=== PATIENT | female | born 1980 | race Caucasian/White ===

== ENCOUNTER 2018-12-05 17:02 | Inpatient (IN) | payer OTHER ==
[2018-12-05] MEDS ORDERED: NA CHLORIDE 0.9% 1,000 ML ONE (19:57)
[2018-12-05 20:08] LABS: Absolute Lymphocytes (CBC) 2.1 K/uL (0.7-4.9); Basophils % 0.4 % (0-1.3); Hematocrit 32.9 % (36.0-45.0); Lymphocytes % 25.7 % (15.3-44.8); MPV 8.8 fL (7.6-11.3)
[2018-12-05 20:17] LABS: Urine Blood NEGATIVE (NEG); Urine Glucose NEGATIVE (NEG); Urine Protein 1+ (NEG); Urine Specific Gravity >1.030 (1.005-1.030); Urine pH 5.5 (5.0-7.0)
[2018-12-05 20:24] LABS: Potassium 3.2 mmol/L (3.5-5.1)
--- NOTE | 2018-12-05 20:43 | RAD REPORT ---
EXAM DESCRIPTION: CTAbdomen Pelvis W Contrast - 12/05/2018 8:19 pm CLINICAL HISTORY: Abdominal pain. ABD PAIN COMPARISON: No comparisons TECHNIQUE: Biphasic CT imaging of the abdomen and pelvis was performed with 100 ml non-ionic IV cont rast. All CT scans are performed using dose optimization technique as appropriate and may include automated exposure control or mA/KV adjustment according to patient size. FINDINGS: The lung bases are clear. The liver, spleen, pancreas, adrenal glands and kidneys are within normal limits. No bowel obstruction, free air or abscess. Trace free fluid is seen in the pelvis. Dilated thickened tubular structure measuring 12 mm is present in the right lower quadrant (image 115/196 coronal seque nce). This likely is an early inflamed appendix. No evidence of significant lymphadenopathy. No suspicious bony findings. IMPRESSION: Early acute appendicitis is suspected.
--- NOTE | 2018-12-05 20:55 | ER ---
Nurse's Notes [facility] Name: Kimberlee Bocanegra Age: 38 yrs Sex: Female : 1980 Arrival Date: 12/05/2018 Time: 17:04 Bed 30 Private MD: Diagnosis: Acute appendicitis Presentation: 12/05 17:56 Presenting complaint: Patient states: "Last night about 10pm I started having stabbing aj1 pain in my abdomen. I thought it would pass, around 12 it kept getting worse and I couldn't get comfortable. I kept feeling like I needed to go to the bathroom and felt nauseated I had chills. I woke up at 4 am, threw up. Im still having pain." Reports pain to RLQ. Reports chills. Transition of care: patient was not received from another setting of care. Onset of symptoms was December 04, 2018 at 22:00. Risk Assessment: Do you want to hurt yourself or someone else? Patient reports no desire to harm self or others. Initial Sepsis Screen: Does the patient meet any 2 criteria? No. Patient's initial sepsis screen is negative. Does the patient have a suspected source of infection? Yes: Acute abdominal pain. Care prior to arrival: None. 17:56 Method Of Arrival: Ambulatory aj 17:56 Acuity: TRACY 3 aj1 Triage Assessment: 17:58 General: Appears in no apparent distress. uncomfortable, Behavior is calm, cooperative, aj1 appropriate for age. Pain: Complains of pain in right lower quadrant Pain currently is 8 out of 10 on a pain scale. Neuro: Level of Consciousness is awake, alert, obeys commands. Cardiovascular: Patient's skin is warm and dry. Respiratory: Airway is patent Respiratory effort is even, unlabored, Respiratory pattern is regular, symmetrical. GI: Reports lower abdominal pain, nausea, vomiting. Derm: Skin is pink, warm \\T\\ dry. normal. 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 - Social history:: Smoking status: Patient/guardian denies using tobacco. - Ebola Screening: : Patient denies travel to an Ebola-affected area in the 21 days before illness onset. Screenin:30 Abuse screen: Denies threats or abuse. Denies injuries from another. Nutritional wh screening: No deficits noted. Tuberculosis screening: No symptoms or risk factors identified. Fall Risk None identified. Assessment: 19:30 General: Appears in no apparent distress. Behavior is calm, cooperative, appropriate wh for age. Pain: Complains of pain in left lower quadrant Pain does not radiate. Pain currently is 4 out of 10 on a pain scale. Quality of pain is described as aching, Pain began 1 day ago. Neuro: Level of Consciousness is awake, alert, obeys commands. Cardiovascular: Capillary refill < 3 seconds. Respiratory: Airway is patent Respiratory effort is even, unlabored, Respiratory pattern is regular, symmetrical. Respiratory: Breath sounds are clear bilaterally. GI: Abdomen is flat, non-distended, Bowel sounds present X 4 quads. Abd is soft and non tender. : No signs and/or symptoms were reported regarding the genitourinary system. EENT: No signs and/or symptoms were reported regarding the EENT system. Derm: Skin is intact, is healthy with good turgor, Skin is pink, warm \\T\\ dry. normal. Musculoskeletal: Circulation, motion, and sensation intact. 20:30 Reassessment: Patient appears in no apparent distress at this time. No changes from previously documented assessment. Patient and/or family updated on plan of care and expected duration. Pain level reassessed. Patient is alert, oriented x 3, equal unlabored respirations, skin warm/dry/pink. 21:32 Reassessment: Patient appears in no apparent distress at this time. No changes from previously documented assessment. Patient and/or family updated on plan of care and expected duration. Pain level reassessed. Patient is alert, oriented x 3, equal unlabored respirations, skin warm/dry/pink. Dr Salvador Spoke with Pt. going directly to OR. 21:48 Reassessment: Report given to Lixena OR Nurse. Vital Signs: 17:58 BP 122 / 80; Pulse 95; Resp 18; Temp 97.5; Pulse Ox 99% on R/A; Weight 68.04 kg (R); aj1 Height 5 ft. 3 in. (160.02 cm) (R); Pain 8/10; 19:30 BP 108 / 75; Pulse 68; Resp 18; Pulse Ox 99% on R/A; wh 20:30 BP 107 / 73; Pulse 65; Resp 18; Pulse Ox 100% on R/A; wh 21:30 BP 121 / 91; Pulse 68; Resp 18; Pulse Ox 100% on R/A; wh 17:58 Body Mass Index 26.57 (68.04 kg, 160.02 cm) aj1 ED Course: 17:04 Patient arrived in ED. as 17:58 Triage completed. aj1 17:58 Arm band placed on Patient placed in waiting room, Patient notified of wait time. aj1 18:09 Melody Uribe FNP-C is PHCP. kb 18:09 Aidan Rosales MD is Attending Physician. kb 19:04 Elmer Gallo is Primary Nurse. 19:04 Melody Uribe FNP-C is PHCP. kb 19:04 Tommy Mendoza MD is Attending Physician. kb 19:39 Radiology exam delayed due to lab results not completed at this time. (BUN/Creatinine). mw3 20:15 Inserted saline lock: 22 gauge in right antecubital area, using aseptic technique. Blood collected. 20:19 CT completed. Patient tolerated procedure well. Patient moved back from CT. mw3 20:20 CT Abd/Pelvis - IV Contrast Only In Process Unspecified. EDMS 20:30 Patient has correct armband on for positive identification. Placed in gown. Bed in low wh position. Call light in reach. Side rails up X 1. Pulse ox on. NIBP on. 20:54 Joe Salvador MD is Hospitalizing Provider. kb 21:49 No provider procedures requiring assistance completed. Patient admitted, IV remains in place. Administered Medications: 19:53 Drug: NS 0.9% 1000 ml Route: IV; Rate: 1000 ml; Site: right antecubital; 21:45 Follow up: Response: No adverse reaction; IV Status: Completed infusion 21:07 Drug: LevaQUIN 500 mg Volume: 100 ml; Route: IVPB; Infused Over: 60 mins; Site: right antecubital; 21:50 Follow up: Response: No adverse reaction; IV Status: Completed infusion 21:07 Drug: Flagyl 500 mg Volume: 100 ml; Route: IVPB; Rate: 200 ml/hr; Infused Over: 30 wh mins; Site: right antecubital; 21:50 Follow up: Response: No adverse reaction; IV Status: Completed infusion Outcome: 20:54 Decision to Hospitalize by Provider. 21:49 Admitted to OR accompanied by nurse, family with patient, via stretcher, with chart, Other Bedside report given to Lixena OR Nurse 21:49 Condition: good 21:49 Instructed on the need for admit. 21:51 Patient left the ED. Signatures: Dispatcher [employer] EDMelody Dickson, DRAWING IN MACHINE TENDER HELPER-C DRAWING IN MACHINE TENDER HELPER-Ange Montanez RN RN aj1 Susie Angulo Winsy wh Willis, Michelle mw3
--- NOTE | 2018-12-05 20:56 | EDPHYS ---
Physician Documentation [facility] Name: Kimberlee Bocanegra Age: 38 yrs Sex: Female : 1980 Arrival Date: 12/05/2018 Time: 17:04 Bed 30 Private MD: ED Physician Tommy Mendoza HPI: 12/05 20:16 This 38 yrs old Female presents to ER via Ambulatory with complaints of kb Abdominal Pain. 20:16 The patient presents with abdominal pain right lower quadrant. Onset: The kb symptoms/episode began/occurred yesterday. The symptoms do not radiate. Associated signs and symptoms: Pertinent positives: nausea and vomiting, chills. The symptoms are described as constant. Modifying factors: The symptoms are alleviated by nothing, the symptoms are aggravated by movement, pressure, walking. Severity of pain: At its worst the pain was moderate in the emergency department the pain is unchanged. The patient has not experienced similar symptoms in the past. The patient has not recently seen a physician. 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 - Social history:: Smoking status: Patient/guardian denies using tobacco. - Ebola Screening: : Patient denies travel to an Ebola-affected area in the 21 days before illness onset. ROS: 20:12 Neck: Negative for injury, pain, and swelling, Cardiovascular: Negative for chest pain, kb palpitations, and edema, Respiratory: Negative for shortness of breath, cough, wheezing, and pleuritic chest pain, Back: Negative for injury and pain, : Negative for injury, bleeding, discharge, and swelling, MS/Extremity: Negative for injury and deformity, Skin: Negative for injury, rash, and discoloration, Neuro: Negative for headache, weakness, numbness, tingling, and seizure. 20:12 Constitutional: Positive for chills, Negative for body aches, fatigue, fever, malaise, poor PO intake, weight loss. 20:12 Abdomen/GI: Positive for abdominal pain, nausea and vomiting. Exam: 20:15 Constitutional: This is a well developed, well nourished patient who is awake, alert, kb and in no acute distress. Head/Face: Normocephalic, atraumatic. ENT: Nares patent. No nasal discharge, no septal abnormalities noted. Tympanic membranes are normal and external auditory canals are clear. Oropharynx with no redness, swelling, or masses, exudates, or evidence of obstruction, uvula midline. Mucous membranes moist. Neck: Trachea midline, no thyromegaly or masses palpated, and no cervical lymphadenopathy. Supple, full range of motion without nuchal rigidity, or vertebral point tenderness. No Meningismus. Chest/axilla: Normal chest wall appearance and motion. Nontender with no deformity. No lesions are appreciated. Cardiovascular: Regular rate and rhythm with a normal S1 and S2. No gallops, murmurs, or rubs. Normal PMI, no JVD. No pulse deficits. Respiratory: Lungs have equal breath sounds bilaterally, clear to auscultation and percussion. No rales, rhonchi or wheezes noted. No increased work of breathing, no retractions or nasal flaring. Back: No spinal tenderness. No costovertebral tenderness. Full range of motion. Skin: Warm, dry with normal turgor. Normal color with no rashes, no lesions, and no evidence of cellulitis. MS/ Extremity: Pulses equal, no cyanosis. Neurovascular intact. Full, normal range of motion. Neuro: Awake and alert, GCS 15, oriented to person, place, time, and situation. Cranial nerves II-XII grossly intact. Motor strength 5/5 in all extremities. Sensory grossly intact. Cerebellar exam normal. Normal gait. 20:15 Abdomen/GI: Inspection: abdomen appears normal, Bowel sounds: normal, in all quadrants, Palpation: soft, in all quadrants, nontender, in the right upper quadrant, left upper quadrant and left lower quadrant, severe abdominal tenderness, in the right lower quadrant, Indicators: McBurney's point is tender, Psoas sign is positive. Vital Signs: 17:58 BP 122 / 80; Pulse 95; Resp 18; Temp 97.5; Pulse Ox 99% on R/A; Weight 68.04 kg (R); aj1 Height 5 ft. 3 in. (160.02 cm) (R); Pain 8/10; 19:30 BP 108 / 75; Pulse 68; Resp 18; Pulse Ox 99% on R/A; wh 20:30 BP 107 / 73; Pulse 65; Resp 18; Pulse Ox 100% on R/A; wh 21:30 BP 121 / 91; Pulse 68; Resp 18; Pulse Ox 100% on R/A; wh 17:58 Body Mass Index 26.57 (68.04 kg, 160.02 cm) aj1 MDM: 19:04 Patient medically screened. kb 20:12 Data reviewed: vital signs, nurses notes. Data interpreted: Pulse oximetry: on room air kb is 99 %. Interpretation: normal. 20:53 Counseling: I had a detailed discussion with the patient and/or guardian regarding: the kb historical points, exam findings, and any diagnostic results supporting the discharge/admit diagnosis, lab results, radiology results, the need for further work-up and treatment in the hospital. Physician consultation: Joe Salvador MD was contacted at 20:53, regarding admission, to the medical/surgical unit. consult, patient's condition, and will see patient in ED, shortly. 08 19:24 Order name: Basic Metabolic Panel; Complete Time: 20:25 kb 12/05 19:24 Order name: CBC with Diff; Complete Time: 20:17 kb 08 19:24 Order name: CT Abd/Pelvis - IV Contrast Only; Complete Time: 20:46 kb 08 20:07 Order name: Urine Dipstick--Ancillary (enter results); Complete Time: 20:20 kb 08 20:07 Order name: Urine --Ancillary (enter results); Complete Time: 20:20 kb 12/05 18:09 Order name: Urine Dipstick-Ancillary (obtain specimen); Complete Time: 20:44 kb 08 18:09 Order name: Urine Test (obtain specimen); Complete Time: 20:44 kb 12/05 19:24 Order name: IV Saline Lock; Complete Time: 20:44 kb 12/05 19:24 Order name: Labs collected and sent; Complete Time: 20:44 kb Administered Medications: 19:53 Drug: NS 0.9% 1000 ml Route: IV; Rate: 1000 ml; Site: right antecubital; 21:45 Follow up: Response: No adverse reaction; IV Status: Completed infusion 21:07 Drug: LevaQUIN 500 mg Volume: 100 ml; Route: IVPB; Infused Over: 60 mins; Site: right antecubital; 21:50 Follow up: Response: No adverse reaction; IV Status: Completed infusion 21:07 Drug: Flagyl 500 mg Volume: 100 ml; Route: IVPB; Rate: 200 ml/hr; Infused Over: 30 wh mins; Site: right antecubital; 21:50 Follow up: Response: No adverse reaction; IV Status: Completed infusion Disposition: 12/05/18 20:54 Hospitalization ordered by Joe Salvador for Observation. Preliminary diagnosis is Acute appendicitis. - Bed requested for Telemetry/MedSurg (observation). - Status is Observation. - Condition is Stable. - Problem is new. - Symptoms are unchanged. UTI on Admission? No Signatures: Dispatcher [employer] EDMS Melody Uribe, ELVIA-C RHEUMATOLOGY SPECIALIST-Ange Montanez RN RN aj Annalisa Adam RN RN Elmer Gallo Corrections: (The following items were deleted from the chart) 21:06 20:54 Hospitalization Ordered by Joe Salvador MD for Observation. Preliminary diagnosis cg is Acute appendicitis. Bed requested for Telemetry/MedSurg (observation). Status is Observation. Condition is Stable. Problem is new. Symptoms are unchanged. UTI on Admission? No. kb 21:51 21:06 12/05/2018 20:54 Hospitalization Ordered by Joe Salvador MD for Observation. Preliminary diagnosis is Acute appendicitis. Bed requested for Telemetry/MedSurg (observation). Status is Observation. Condition is Stable. Problem is new. Symptoms are unchanged. UTI on Admission? No. cg
[2018-12-05] MEDS ORDERED: Levofloxacin500mg IV 500 MG/100 ML BAG IV ONE (20:57)
[2018-12-05] MEDS ORDERED: METRONIDAZOLE 500mg IVPB 500 MG/100 ML BAG IV ONE (20:58)
[2018-12-05] MEDS ORDERED: NA CHLORIDE 0.9% 1,000 ML IV SCH (21:17)
[2018-12-05] MEDS ORDERED: ACETAMINOPHEN 500 MG TAB PO PRN (21:17)
[2018-12-05] MEDS ORDERED: PIPER/TAZO/NS 3.375gm 3.375 GM/100 ML BAG ONE (21:41)
[2018-12-05] MEDS ORDERED: PROPOFOL 200 MG/20 ML VIAL IV ONE (21:54)
[2018-12-05] MEDS ORDERED: MORPHINE 10 MG/ML VIAL ONE (21:54)
[2018-12-05] MEDS ORDERED: LIDOCAINE 1% MPF 5 ML VIAL ONE (21:54)
[2018-12-05] MEDS ORDERED: GLYCOPYRROLATE 0.2 MG/ML SYR ONE ×2 (21:54)
[2018-12-05] MEDS ORDERED: FENTANYL CITR 100 MCG/2 ML ONE (21:54)
[2018-12-05] MEDS ORDERED: MIDAZOLAM HCL 2 MG/2 ML INJ ONE (21:54)
[2018-12-05] MEDS ORDERED: ONDANSETRON 4 MG/2 ML VIAL ONE (21:55)
[2018-12-05] MEDS ORDERED: ROCURONIUM 50 MG/5 ML VIAL IV ONE (21:55)
[2018-12-05] MEDS ORDERED: KETOROLAC 30 MG/ML INJ ONE (21:55)
[2018-12-05] MEDS ORDERED: NEOSTIGMINE 1 MG/ML -10 ML VIAL ONE (21:56)
[2018-12-05] MEDS ORDERED: BUPIVACA 0.5%/EPI 0.0005%/PF 10 ML VIAL ONE (21:58)
[2018-12-05] MEDS ORDERED: Ringers Lactate 1,000 ML IV ONE (22:52)
--- NOTE | 2018-12-05 22:59 | P.OP ---
Preoperative diagnosis: Acute Appendicitis Postoperative diagnosis: Acute Appendicitis Primary procedure: Laparoscopic Appendectomy Anesthesia: GETA + Local Estimated blood loss: <10cc Specimen: Vermiform Appendix Findings: Non-Perforated Appendicitis Complications: None Transferred to: Recovery Room Condition: Good
[2018-12-05] MEDS ORDERED: NALOXONE 0.4 MG/ML VIAL ONE (23:16)
[2018-12-06 00:01] LABS: Hematocrit 22.1 % (36.0-45.0)
[2018-12-06] MEDS ORDERED: Ringers Lactate 2,000 ML IV ONE (00:02)
[2018-12-06] MEDS ORDERED: Ringers Lactate 1,000 ML IV ONE ×4 (00:19→03:22)
[2018-12-06] MEDS ORDERED: FENTANYL CITR 100 MCG/2 ML ONE (00:23)
[2018-12-06] MEDS ORDERED: ETOMIDATE 20 MG/10 ML VIAL IV ONE (00:24)
[2018-12-06] MEDS ORDERED: SUCCINYLCHOLINE 20 MG/ML (10 ML) IV ONE (00:25)
[2018-12-06] MEDS ORDERED: EPHEDRINE SULF 50 MG/ML VIAL ONE (00:28)
[2018-12-06] MEDS ORDERED: ALBUMIN HUM 5% 250 ML IV ONE (00:58)
[2018-12-06] MEDS ORDERED: NA CHLORIDE 0.9% 1,000 ML ONE (01:12)
--- NOTE | 2018-12-06 01:55 | P.OP ---
Preoperative diagnosis: Post Op Hemorrhage Postoperative diagnosis: Post Op Hemorrhage Primary procedure: Diagnostic Laparoscopy, evacuation of hematoma Anesthesia: GETA Estimated blood loss: 400cc clot Specimen: none Findings: No active bleeding indentified, suspect trocar bleeding Complications: None Fluids & blood products: 2 units PRBC Transferred to: ICU Condition: Fair
[2018-12-06] MEDS ORDERED: NA CHLORIDE 0.9% 0 ML ONE (02:27)
[2018-12-06 04:57] VITALS: BMI 28.1
[2018-12-06] MEDS: Ringers Lactate 1,000 ML IV SCH ×4 (05:22→20:01)
[2018-12-06] MEDS: MORPHINE 4 MG/ML SYR IV PRN ×2 (05:26→09:02)
[2018-12-06 05:30] LABS: Hematocrit 25.7 % (36.0-45.0)
--- NOTE | 2018-12-06 05:54 | HP ---
Date of Admission: 12/05/2018 Brief History Of Present Illness: The patient is a 38-year-old female who presents to the hospital with approximately 1-1/2 days of periumbilical abdominal pain now located to the right lower quadrant. It is made worse with movement, coughing, straining, any activity. It is made better by lying still. She has never had similar episodes before in the past. No sick contacts. No recent tr samuel. No new food exposures. The patient has been getting progressively worse over the course of , associated with fever, chills, and nausea. Past Medical History: Significant for prolactinoma. Past Surgical History: She had tubal ligation. Home Medications: None. Allergies: NO KNOWN DRUG ALLERGIES. Social History: She denies smoking, alcohol, or recreational drug use. 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 Review of Systems: A 10-point review of systems other than HPI, denies. Physical Examination: Vital Signs: At the time of my examination, her vital signs were stable. General: She is awake, alert, and oriented. Psychiatric: She is appropriate and conversive. HEENT: She is normocephalic. Sclerae anicteric. Mucous membranes are moist. Oropharynx clear. Neck: Supple. No JVD. Chest: Expansion and excursion. Cardiovascular: Regular rate and rhythm. Pulmonary: Clear to auscultation bilaterally. Abdomen: Soft with positive right lower quadrant focal peritonitis at McBurney's point. Positive re bound, positive guarding consistent with early appendicitis. Extremities: No clubbing, cyanosis, or edema. Skin: Warm and dry. Laboratory Data: Reveals a white blood count of 8.1, hemoglobin 11.3, hematocrit of 32.8 neutrophils are normal at 64%, platelet count is 223. Her sodium 144, potassium 3.2, chloride 110, carbon dioxi de 26, BUN 9, creatinine 0.7, glucose 91, calcium 8.4. UA was negative. test is negative. She had a CT scan performed of the abdomen and pelvis, officially read by Dr. Laird as acute appendi citis early suspected, specifically there was dilated thickened tubular structure measuring 12 mm is present in the right lower quadrant, likely early inflamed appendix. No significant lymphadenopathy. No other findings. Assessment And Plan: This is a 38-year-old female who presents with signs and symptoms of early appe ndicitis. 1.IV fluid hydration. 2.Antibiotic coverage. 3.I have explained the risks, benefits, and alternatives of possible open appendectomy including but not limited to bleeding, infection, damage to surrounding tissues, need further operating procedures . The patient displayed understanding of the above stated plan and agreed to proceed as indicated. ZORA/LONNIE Voice ID: [id number]
[2018-12-06] MEDS: INSULIN -REGULAR HUMAN 50 UNIT/0.5 ML ML SQ SCH ×4 (07:30→21:00)
[2018-12-06 08:18] LABS: Hematocrit 25.9 % (36.0-45.0)
--- NOTE | 2018-12-06 08:33 | OP ---
Date of Procedure: 12/06/2018 Surgeon: Joe Salvador MD, Preoperative Diagnosis: Postoperative hemorrhage. Postoperative Diagnosis: Postoperative hemorrhage. Procedure Performed: 1.Diagnostic laparoscopy. 2.Evacuation of abdominal hematoma. Anesthesia: General endotracheal. Estimated Blood Loss: 400 cc of clot evacuated. Specimen: None. Findings: 1.No active bleeding identified. 2.Majority of blood was in the pelvis near the right lower quadrant trocar on the anterior surface. There was minimal on the right pericolic gutter. None in the left pericolic gutter. Some extended up to the hepatic space, none in the perisplenic space, and there was some in the pelvis. 3.Bleeding site suspected is the right lower quadrant trocar site, but no active bleeding was identi fied throughout the procedure. Complications: None. Blood Products Given: 2 units of PRBCs. Disposition: Patient will be transferred to ICU in fair condition for close observation. Brief History Of Present Illness: Patient is a 38-year-old female, who presented earlier in the day for a laparoscopic appendectomy due to acute nonperforated appendicitis. She was taken for a what se emed to be an uneventful laparoscopic appendectomy. Shortly after being placed in the recovery room, she was noted to be hypotensive to the 70s systolic. She was given fluid boluses and started to imp rove her vital signs. After several fluid boluses, her heart rate remained in the 60s and her blood pressure came up to the 100 over 50 to 60 range diastolic. I was a concern, however, as the patient appeared somewhat pale and lethargic and as such I primitivo a stat H and H, her hemoglobin came back in t he 7 range from 11 preoperatively. She had received several liters of fluid boluses, but I still fel t that this was likely a postoperative bleed out of the normal expected dilutional effect and as such I decided to take the patient back to the operating room after discussing it with her as wel l as the patient, who was awake and oriented by this time. Procedure In Detail: After informed consent was obtained from the patient and her , I reopene d her periumbilical incision, grasped elevated the skin using a penetrating towel clamp and entered t he abdomen using an optical trocar without evidence of complication. Insufflation was obtained to 15 mmHg this time and immediately I noted significant amount of blood consistent with a clot over the p elvic area, predominantly in the right lower quadrant and pelvic area, seemingly centered around the right lower quadrant trocar. There was no active bleeding at this time, as insufflation was 15 mmHg. I decided to reopen the previously placed 2 trocars, 1 in the right lower quadrant and 1 in the lef t lower quadrant, and I placed these 5 mm trocars under direct visualization without evidence of comp lication at this time. There was no bleeding even after placement of these trocars. I then upsized the umbilical trocar to 12 mm without evidence of complication. Once again, the abdomen was then ins pected and there was no active extravasation or bleeding at this time. I used the suction parts salvager to completely suction out all the clot which came up to approximately 400 cc of clot. I then used ap proximately 6 L of irrigant to irrigate the entire abdomen and pelvis until completely clear. After the abdomen was completely clear and the perihepatic space, the perisplenic space of the right lower quadrant, left lower quadrant, and pelvis were all completely evacuated. I placed the patient in chato ep Trendelenburg position, rolled her towards the right and inspected the previous surgical site. Th e staple line was found to be in good anatomic position. There was no bleeding from the mesoappendic eal stump at this time and no evidence of active bleeding in this area. I then turned my attention t o the pelvis and inspected the ovary, fallopian tubes, and uterus. There was no active bleeding at t his time and it was clear. No active bleeding was identified throughout the entire procedure. I the n inspected the left ovary and fallopian tubes as well as the uterus, space of Retzius, and perisplen ic space. After completely inspecting and suctioning out the abdomen from a clear effluent now, I tu rned the insufflation down to sequentially from 15 to 12 to 10 to 5 to 2. I removed the trocars and observed under insufflation of approximately 5 mmHg. The trocar sites looking for any active bleedin g. None was appreciated even without trocars in place. I then alternated trocars and rotated them, inspecting the area to see if I could stimulate the area by manipulation, but no active bleeding was appreciated. No even venous bleeding was appreciated from any of the trocar sites. After staring at the trocar sites and under desufflation, manipulating the patient from [id number] and inspecting t he area, no bleeding was encountered and as such I decided to end the procedure. The umbilical troca r was then removed after insufflating the abdomen back to 50 mmHg and a Giovani-Ricky suture passer was used to secure the umbilicus with 2 interrupted 0 Vicryl sutures with good approximation of tiss ues. I then desufflated the abdomen to 2 mmHg once again and removed the right lower quadrant trocar under direct visualization without evidence of complication. I stared at the trocar site without an y evidence of bleeding at this time. There was minimal irrigant evident in the pelvis as the patient 's abdomen got desufflated, but no blood was appreciated in this effluent and had a clear consistency . I then, under direct visualization, slowly withdrew the last trocar after desufflating the abdomen completely and turning all gas off and as I removed, I inspected the trocar upon exit. There was no active bleeding and no irrigant effluent from the trocar site at this time. I then opened both 5 mm pelvic trocar sites with a hemostatic at the end to inspect for any active bleeding prior to closure . None was appreciated. All skin incisions were then copiously irrigated at this time and closed wi th a 4-0 Monocryl in a running fashion. Dermabond placed over the top. Patient tolerated the proced ure well without incident or complication. She required no pressors throughout the procedure, was gi jorge 2 units PRBCs due to somewhat hypotensive blood pressure throughout the procedure, down to the 70 s, but did not require any pressor support. All counts were correct in the case. Patient will be ob served in the ICU this evening with serial H and H and continuous monitoring. ZORA/LONNIE Voice ID: [id number] Report ID: [id number]
--- NOTE | 2018-12-06 08:33 | OP ---
Date of Procedure: 12/05/2018 Surgeon: Joe Salvador MD, Postoperative Diagnosis: Acute appendicitis. Postoperative Diagnosis: Acute appendicitis. Procedure Performed: Laparoscopic appendectomy. Anesthesia: General endotracheal plus local with 0.5% Marcaine with epinephrine. Estimated Blood Loss: Less than 10 cc. Specimen: Vermiform appendix. Findings: Nonperforated appendicitis. Complications: None. Disposition: Transferred to recovery room in good condition. Procedure In Detail: After informed was obtained, patient was brought to the operating room, prepped and draped in the usual sterile fashion. After adequate anesthesia was achieved, an infraumbilical area was anesthetized with 0.5% Marcaine, sharply incised. A 5-mm trocar was introduced in the abdom en without evidence of complication. Insufflation was obtained to 15 mmHg at this time. There were no injury to vital structures upon entry to the abdomen. The abdomen was inspected and the appendix found to be grossly inflamed in the right lower quadrant without any evidence of perforation. Additi onal trocar chosen in the right lower quadrant. This was similarly anesthetized and sharply incised. A 5-mm trocar was introduced into the abdomen without evidence of complication. The umbilical troc ar was then up-sized to a 12 mm under direct visualization without evidence of complication. Additio nal trocar chosen a left lower quadrant. This was similarly anesthetized and sharply incised. A 5-m m trocar was placed without evidence of complication under direct visualization. The patient was pos itioned head down, right side up position. Ratcheted grasper was used to grasp the patient's appendi x. An elevated mesoappendiceal window was created with the [place] retractor. Endo BETHANY 35 blue bertha d was fired across the base the appendix with good approximation of tissues. The EnSeal was then use d to take the mesoappendix down with good hemostasis at this time. The appendix was placed in EndoCa tch bag, removed through the umbilical trocar and sent off for pathologic examination. The abdomen w as then inspected once again and found to have good hemostasis and the staple line was found to be wi thout any evidence of leakage. The area was copiously irrigated multiple times until completely tia r with suction commissions specialist, and then the abdomen was suctioned clear. After placed the patient in neut ral position, the pelvis was then irrigated copiously with approximately 3 L of saline and suctioned until completely dry. Patient was positioned in a slightly head-down position and the umbilical troc ar was removed. The umbilical trocar site was then closed with a Giovani-Ricky suture passer with 0 Vicryl in interrupted fashion and good approximation tissues. The abdomen was completely desufflat ed under direct visualization without evidence of complication. All trocars were then removed. All skin incisions copiously irrigated closed with a 4-0 Monocryl in a running fashion. Dermabond was pl aced over the top. Patient tolerated the procedure well without evidence of complication and transfe rred to PACU in good condition. All counts were correct at the end of the case. ZORA/LONNIE Voice ID: [id number] Report ID: [id number]
[2018-12-06] MEDS ORDERED: ENOXAPARIN 40 MG/0.4 ML SQ SCH (09:00)
--- NOTE | 2018-12-06 11:03 | P.PN ---
Subjective Date of Service: 12/06/18 Subjective: Improving (Patient hemodynamically stable in ICU, feels well, has some abdominal tenderness, and sore throat.) Physical Examination - Vital Signs Temperature: 98.5 F Blood Pressure: 99/63 Pulse: 91 Respirations: 16 Pulse Ox (%): 100 - Physical Exam General: Alert, In no apparent distress Respiratory: Clear to auscultation bilaterally Cardiovascular: Normal pulses, Regular rate/rhythm Gastrointestinal: Other (soft, mild appropriate TTP, ND, incisions clean and dry , binder in place) - Studies Laboratory Data (last 24 hrs) 12/06/18 07:51: Hgb 9.6 L, Hct 25.9 L 12/06/18 05:01: Hgb 9.1 L, Hct 25.7 L D 12/05/18 23:54: Hgb 7.5 L* D, Hct 22.1 L D 12/05/18 23:48: Hgb Cancelled, Hct Cancelled 12/05/18 19:50: WBC 8.1, Hgb 11.3 L, Hct 32.9 L, Plt Count 223 12/05/18 19:50: Sodium 144, Potassium 3.2 L, BUN 9, Creatinine 0.79, Glucose 91 Assessment And Plan - Current Problems (Diagnosis) (1) Appendicitis Current Visit: Yes Status: Acute Plan: POD# 1 s/p Lap appendectomy with return to OR for post op bleeding 1.) Neuro / Pain: well controlled with current regime 2.) CVS: normotensive, normal rate, no evidence of ongoing hemorrhage, continue Q4 h+h x 24hrs 3.) Pulm: incentive spirometry Q15 min while awake, supplemental oxygen by NC, wean as tolerated 4.) GI - anticipate ileus due to reoperation, will add levaquin and flagyl for 5 days due to reoperation, serial exams 5.) : strict I/O - continue to monitor 6.) FEN: continue IV hydration, electrolyte replacement protocol for Mg, Phos, K , Nutrtion will start clears if next Hemoglobin stable 7.) Endo: continue insulin sliding scale 8.) ID: antibiotics as above 9.) prophylaxis - no lovenox as she had post op hemorrhage, and will ambulate today 10.) ok to floor if remains HD stable, and hemoglobin stable
[2018-12-06 11:57] LABS: Hematocrit 26.5 % (36.0-45.0)
[2018-12-06] MEDS: ONDANSETRON 4 MG/2 ML VIAL IV PRN (14:06)
[2018-12-06] MEDS ORDERED: MORPHINE 2 MG/ML SYR IV PRN (14:16)
[2018-12-06] MEDS: HYDROCODONE/APAP 7.5/325 MG TAB PO PRN ×3 (14:57→23:58)
[2018-12-06] MEDS: METRONIDAZOLE 500mg IVPB 500 MG/100 ML BAG IV SCH (18:35)
[2018-12-06] MEDS: Levofloxacin500mg IV 500 MG/100 ML BAG IV SCH (20:01)
[2018-12-06 20:54] LABS: Hematocrit 25.7 % (36.0-45.0)
[2018-12-07 04:17] LABS: Absolute Lymphocytes (CBC) 1.1 K/uL (0.7-4.9); Basophils % 0.1 % (0-1.3); Hematocrit 25.6 % (36.0-45.0); Lymphocytes % 18.7 % (15.3-44.8); MPV 8.2 fL (7.6-11.3); RBC Red Blood Cell Count 2.92 M/uL (3.86-4.86)
[2018-12-07 04:41] LABS: BUN Blood Urea Nitrogen 3 mg/dL (7-18); Bicarbonate 27 mmol/L (21-32); Glucose Level 115 mg/dL (74-106); Magnesium 1.8 mg/dL (1.8-2.4); Phosphorus 2.4 mg/dL (2.5-4.9); Potassium 3.6 mmol/L (3.5-5.1); Sodium Level 145 mmol/L (136-145)
[2018-12-07] MEDS: Ringers Lactate 1,000 ML IV SCH ×2 (04:59→14:26)
[2018-12-07] MEDS: HYDROCODONE/APAP 7.5/325 MG TAB PO PRN ×3 (05:41→19:56)
[2018-12-07] MEDS: INSULIN -REGULAR HUMAN 50 UNIT/0.5 ML ML SQ SCH ×2 (07:30→11:30)
[2018-12-07] MEDS: METRONIDAZOLE 500mg IVPB 500 MG/100 ML BAG IV SCH ×3 (08:50→16:19)
[2018-12-07] MEDS: ONDANSETRON 4 MG/2 ML VIAL IV PRN ×2 (09:38→20:55)
[2018-12-07 13:27] LABS: Hematocrit 26.4 % (36.0-45.0)
[2018-12-07] MEDS: Levofloxacin500mg IV 500 MG/100 ML BAG IV SCH (19:54)
[2018-12-08] MEDS: Ringers Lactate 1,000 ML IV SCH
[2018-12-08 04:13] LABS: Absolute Lymphocytes (CBC) 1.4 K/uL (0.7-4.9); Basophils % 0.3 % (0-1.3); Hematocrit 24.1 % (36.0-45.0); Lymphocytes % 32.4 % (15.3-44.8); MPV 8.3 fL (7.6-11.3); RBC Red Blood Cell Count 2.75 M/uL (3.86-4.86)
[2018-12-08 04:37] LABS: BUN Blood Urea Nitrogen 4 mg/dL (7-18); Bicarbonate 28 mmol/L (21-32); Glucose Level 108 mg/dL (74-106); Magnesium 1.9 mg/dL (1.8-2.4); Phosphorus 2.7 mg/dL (2.5-4.9); Potassium 3.4 mmol/L (3.5-5.1); Sodium Level 146 mmol/L (136-145)
[2018-12-08] MEDS: METRONIDAZOLE 500mg IVPB 500 MG/100 ML BAG IV SCH ×2 (08:25)
[2018-12-08 09:17] VITALS: O2SAT 94
[2018-12-08 10:15] LABS: Hematocrit 24.6 % (36.0-45.0)
--- NOTE | 2018-12-08 11:18 | P.DS ---
Admission Date: 12/06/18 Discharge Date: 12/08/18 Disposition: ROUTINE DISCHARGE Discharge Condition: GOOD Reason for Admission: Acute appendicitis Procedures: Laparoscopic Appendectomy complicated by post operative bleeding, requiring re- exploratory laparoscopy and evacuation of blood. - Problems (1) Appendicitis Current Visit: Yes Status: Acute Brief History of Present Illness: Patient presented with acute non-perforated appendicitis Hospital Course: Patient taken to OR for laparoscopic appendectomy complicated by immediate post operative bleeding, requiring re-exploratory laparoscopy with evacuation of blood clot, no obvious source of bleeding was identified, patient washed out, sent to ICU for monitoring, did well, had 2 units PRBC in OR, in icu was stable , transferred to floor, Hgb was in 9 range, dipped to 8 range after IV fluids, when DC was stable, patient ambulatory but had occasional lightheaded sensation if stood too quickly, associated with transient nausea, no emesis. - feeling well, tolerating diet, normal bowel function, pain much improved Vital Signs/Physical Exam: Temp Pulse Resp BP Pulse Ox 98.3 F 102 H 18 111/73 94 12/08/18 08:00 12/08/18 08:00 12/08/18 08:00 12/08/18 08:00 12/08/18 08:00 General: Alert, In no apparent distress, Cooperative HEENT: Mucous membr. moist/pink Respiratory: Clear to auscultation bilaterally, Normal air movement Cardiovascular: Regular rate/rhythm Gastrointestinal: Other (soft, appropriate TTP, ND, incisions clean , no infection, binder in place) Musculoskeletal: No clubbing, No swelling Integumentary: No rashes Neurological: Normal speech Laboratory Data at Discharge: WBC 4.2 K/uL (4.3-10.9) L D 12/08/18 03:48 Hgb 8.6 g/dL (12.0-15.0) L 12/08/18 10:00 Hct 24.6 % (36.0-45.0) L 12/08/18 10:00 Plt Count 167 K/uL (152-406) 12/08/18 03:48 Sodium 146 mmol/L (136-145) H 12/08/18 03:48 Potassium 3.4 mmol/L (3.5-5.1) L 12/08/18 03:48 BUN 4 mg/dL (7-18) L 12/08/18 03:48 Creatinine 0.44 mg/dL (0.55-1.3) L 12/08/18 03:48 Glucose 108 mg/dL (74-106) H 12/08/18 03:48 Phosphorus 2.7 mg/dL (2.5-4.9) 12/08/18 03:48 Magnesium 1.9 mg/dL (1.8-2.4) 12/08/18 03:48 Home Medications: NK [No Home Meds] 12/06/18 Patient Discharge Instructions: Call [phone] for appointment in 2 weeks. Alise Devicessujit [email or web address] to fill out forms before you arrive Diet: Regular Activity: No lifting more than 10 lbs
[2018-12-08 12:49] VITALS: BP 120/73; TEMP 98.1
== END 2018-12-08 13:30 | disposition home or self-care (01) | DRG 342 ==
LOC: ER 17:02 → ERHOLD 21:16 → 2ND 22:53 → 3RD-ICU 12-06 03:28 → OBSVTOIN 12-06 07:56 → 4TH 12-06 14:14
PROVIDERS: ADMIT Surgery; ATTEND Surgery
PROC: 0DTJ4ZZ Resection of Appendix, Percutaneous Endoscopic Approach (ICD-10-PCS; principal; 2018-12-05 21:30)
PROC: 0WCJ4ZZ Extirpation of Matter from Pelvic Cavity, Percutaneous Endoscopic Approach (ICD-10-PCS; 2018-12-06)
PROC: 30233N1 Transfusion of Nonautologous Red Blood Cells into Peripheral Vein, Percutaneous Approach (ICD-10-PCS; 2018-12-06)
DX: K35.80 Unspecified acute appendicitis (principal); L76.22 Postprocedural hemorrhage of skin and subcutaneous tissue following other procedure; D62 Acute posthemorrhagic anemia; Y83.6 Removal of other organ (partial) (total) as the cause of abnormal reaction of the patient, or of later complication, without mention of misadventure at the time of the procedure
CPT/HCPCS: 36415; 74177; 80048; 81003; 81025; 82962; 83735; 84100; 85014; 85018; 85025; 86850; 86900; 86901; 88304; 94760; 96361; 96365; 96368; 99285; G0378; J0330; J2250; J2310; J2405; J2543; J2704; J2710; J3010; J7030; P9016; P9045; Q9967